=== PATIENT | male | born 1955 | race Caucasian/White ===

== ENCOUNTER 2018-01-01 18:26 | Inpatient (IN) | payer BC, OTHER ==
[~2018-01-01] VITALS: Ht 177.8 cm; Wt 108.9 kg
[2018-01-01] MEDS ORDERED: IBUPROFEN 400 MG TABLET PO PRN (19:00)
[2018-01-01] MEDS ORDERED: LOPERAMIDE HCL 2 MG CAPSULE PO PRN ×2 (19:00)
[2018-01-01] MEDS ORDERED: MAG HYDROX/AL HYDROX/SIMETH 30 ML LIQUID UDC PO PRN (19:00)
[2018-01-01] MEDS ORDERED: ACETAMINOPHEN 325 MG TABLET PO PRN (19:00)
[2018-01-01] MEDS ORDERED: ONDANSETRON ODT 4 MG TAB.RAPDIS SL PRN (19:00)
[2018-01-01] MEDS ORDERED: DICYCLOMINE HCL 20 MG TABLET PO PRN (19:00)
[2018-01-01] MEDS ORDERED: LORAZEPAM 1 MG TABLET PO PRN (19:00)
[2018-01-01] MEDS ORDERED: ONDANSETRON 4 MG/2 ML VIAL IM PRN (19:00)
[2018-01-01] MEDS ORDERED: LORAZEPAM 2 MG/1 ML VIAL IM PRN (19:00)
[2018-01-01] MEDS ORDERED: MIRALAX 17 GM POWD.PACK PO PRN (19:00)
[2018-01-01 19:52] LABS: BASOPHILS # (AUTO) 0.1 K/uL (0.0-8.0); EOSINOPHILS % (AUTO) 0.8 % (0.0-7.0); HEMATOCRIT 46.5 % (36.7-47.1); HEMOGLOBIN 16.1 g/dL (12.5-16.3); LYMPHOCYTES # (AUTO) 2.3 K/uL (20.0-40.0); LYMPHOCYTES % (AUTO) 34.7 % (20.5-51.5); MEAN CORPUSCULAR HEMOGLOBIN 32.4 uug (23.8-33.4); MEAN CORPUSCULAR HGB CONC 35 g/dL (32.5-36.3); MEAN CORPUSCULAR VOLUME 93.8 fL (73.0-96.2); MONOCYTES # (AUTO) 0.5 K/uL (2.0-10.0); NEUTROPHILS # (AUTO) 3.6 K/uL (1.8-8.9); NEUTROPHILS % (AUTO) 55.5 % (38.5-71.5); PLATELET COUNT (AUTO) 211 K/uL (152-348); RED BLOOD CELL COUNT(AUTO) 4.96 MIL/uL (4.06-5.63); WHITE BLOOD COUNT (AUTO) 6.5 K/uL (3.6-10.2)
[2018-01-01 20:00] VITALS: BP 161/98
[2018-01-01 20:03] LABS: BILIRUBIN,TOTAL 0.5 mg/dL (0.2-1.0); CREATININE 1.2 mg/dL (0.6-1.3); MAGNESIUM 1.9 mg/dL (1.8-2.4); POTASSIUM 3.7 mmol/L (3.5-5.1); TOTAL PROTEIN, SERUM 8.4 g/dL (6.4-8.2)
[2018-01-01] MEDS ORDERED: METO-357 PO (20:04)
[2018-01-01] MEDS ORDERED: HYDR12.55 PO (20:04)
[2018-01-01] MEDS ORDERED: VALA100026 PO (20:04)
[2018-01-01] MEDS ORDERED: [UNRECOGNIZED DRUG - REMARK] (20:04)
[2018-01-01 20:21] LABS: THYROID STIMULATING HORMONE 2.295 mIU/mL (0.358-3.740)
[2018-01-01] MEDS ORDERED: LORAZEPAM 1 MG TABLET PO SCH (21:00)
[2018-01-01] MEDS ORDERED: THIAMINE HCL 200 MG/2 ML VIAL IM ONE (21:00)
[2018-01-01 21:51] LABS: *AMPHETAMINE, URINE NEGATIVE (NEGATIVE); *BARBITURATE, URINE NEGATIVE (NEGATIVE); *CANNABINOID, URINE NEGATIVE (NEGATIVE); *COCCAINE, URINE NEGATIVE (NEGATIVE); *OPIATE, URINE NEGATIVE (NEGATIVE); *PHENCYCLIDINE SCREEN,URINE NEGATIVE (NEGATIVE)
--- NOTE | 2018-01-01 22:30 | NUR ---
ADMISSION NOTE Patient is a 62-year-old male admitted on 01/01/18 for ETOH (vodka) withdrawal, arrived on the unit at 1923. Patient was seen at intake and vital signs take by Yadira. Upon arrival to unit, skin and body check completed. Patient has a small skin lesion on his left forearm as a result of cancer removal 3 weeks ago. Picture and measurements take, place in patient chart. Otherwise, patients skin is warm and diaphoretic. Patient is 510 and weighs 240 lbs. Patient appears anxious and flushed, alcohol on his breath, tremors noted, nausea reported. Patient lung sounds are clear to auscultation bilaterally, some SOB on exertion noted. Patient reports he has been diagnosed with sleep apnea but did not bring his CPAP with him. Nurse instructed patient to keep HOB elevated. Patient denies SI/HI, and denies A/V hallucinations at this time. Patients gait is unsteady due to numbness and weakness of lower extremities. Patients abd is soft and non-tender, bowel sounds hypoactive x4 quadrants upon auscultation. Patient denies history of seizure. He states he is on a regular diet with NKFA, only allergy is to codeine. Patient requests FULL code status, and is currently not a candidate for MRSA swab. Patient states his longest period of sobriety was for 3 years from [id number]. Patients CIWA is 13 upon admission. Patient denies any family history of substance/drug abuse within his immediate family. Patient quit smoking in 2010. Substance abuse history: 1.ETOH (vodka) up to 0.5 gallon daily, for the past 3-4 weeks. Patient had his last drink around 8am this morning of about half a pint. Patient has been drinking alcohol since he was 19-year-old. Patient has been given a tour of the unit and oriented to his room. Patient has been given rules and protocols of the unit as well as handout information. Patient verbalizes understanding to instructions. Safety measures in place. Patient is on fall and seizure precautions. Bed is locked in low position, side rails up x2, call light within reach. Will continue to monitor.
[2018-01-01] MEDS: diphenhydrAMINE 50 MG CAPSULE PO PRN (22:55)
--- NOTE | 2018-01-01 22:55 | NUR ---
PRN BENADRYL Patient requests sleep aid; PRN Benadryl given PO. Safety measures in place, call light within reach. Will reassess for effectiveness.
--- NOTE | 2018-01-01 23:55 | NUR ---
PRN BENADRYL REASSESSMENT Patient is in bed with eyes closed, respirations even and unlabored, 18/min. PRN effective, in conjunction with Ativan 2mg one time dose. Safety measures in place, call light within reach. Will continue to monitor.
[2018-01-02] VITALS: BP 197/114
--- NOTE | 2018-01-02 | NUR ---
CIWA DEFERRED CIWA deferred due to patient asleep; to be assessed while patient is awake, per protocol. Safety measures in place, call light within reach. Will continue to monitor.
[2018-01-02] MEDS: LORAZEPAM 1 MG TABLET PO PRN ×4 (00:48→23:11)
[2018-01-02 04:00] VITALS: BP 171/116
[2018-01-02] MEDS: hydrALAZINE HCL 50 MG TABLET PO PRN ×2 (04:23→10:42)
--- NOTE | 2018-01-02 04:23 | NUR ---
PRN ATIVAN AND HYDRALAZINE Patient has a current CIWA of 9, current BP 171/116, HR 130. PRN Ativan 1mg given PO, PRN hydralazine given PO. Safety measures in place, call light within reach. Will reassess for effectiveness.
--- NOTE | 2018-01-02 05:23 | NUR ---
PRN ATIVAN AND HYDRALAZINE REASSESSMENT Patient has a current CIWA of 14, current BP of 180/120, HR 125. PRNs given at 0423 were not effective. Charge nurse notified. Safety measures in place, call light within reach. Will continue to monitor and administer meds as appropriate.
--- NOTE | 2018-01-02 05:58 | NUR ---
PRN ATIVAN PRN Ativan 2mg PO given for CIWA of 14. Patient is tremulous, agitated and anxious. Charge nurse notified. Safety measures in place, call light within reach, will reassess for effectiveness.
--- NOTE | 2018-01-02 06:58 | NUR ---
PRN ATIVAN REASSESSMENT Patient is in bed with eyes closed, CIWA deferred due to patient sleeping. Safety measures in place, call light within reach. Will continue to monitor and endorse to day shift.
--- NOTE | 2018-01-02 07:20 | NUR ---
END OF SHIFT Patient is a 29-year-old female admitted on 12/30/17 for Xanax and heroin withdrawal. Patient is on day 3 of 4-day Valium and 5-day Subutex taper. Last COWS was 9, CIWA 8. Patient received PRN Seroquel, Motrin, and MOM. Patient slept for 7 hours, total intake 1,355 mL, void x3 stool x0. Safety measures in place, bed locked in low position, side rails up x2, call light within reach. Will endorse to day shift. Addendum: 01/02/18 at 0805 by WILL DAVENPORT LVN -CORRECTION - The following is the correct end of shift note: END OF SHIFT Patient is a 62-year-old male admitted on 01/01/18 for ETOH (vodka) withdrawal. Patient received PRN Ativan 1mg, Ativan 2mg, Benadryl and hydralazine. Patient slept for 7 hours, total intake 500 mL, void x2, stool x0. Unsteady gait with numbness/weakness of both lower extremities. Patient educated to call for assistance if desiring to ambulate to restroom. Patient verbalized understanding. Safety measures in place, bed locked in low position, side rails up x2, call light within reach. Will endorse to day shift.
--- NOTE | 2018-01-02 08:10 | NUR ---
BEGINNING OF SHIFT Patient endorsement report received from production shift supervisor nurse, all pertinent information discussed. Patient is a 62 year old male with admitting Dx: etoh withdrawal. Patient continues under very close observation, currently with no ongoing taper, but has PRN medications as needed for s/sx of withdrawal. will monitor closely. Per production shift supervisor patient with last ciwa score of: 14. Received PRN: Ativan x3, Benadryl, Zofran and Hydralazine, per production shift supervisor medications were effective, Slept for 7 hours, Fall and seizure precautions observed at all times. Patient received awake, alert and oriented x4, educated regarding plan of care for the day, will continue to monitor closely. safety measures in place.
[2018-01-02 09:00] VITALS: BP 186/109
[2018-01-02] MEDS ORDERED: PNEUMOCOCCAL 23-VAL P-SAC VAC 0.5 ML VIAL IM ONE (09:00)
[2018-01-02] MEDS ORDERED: INFLUENZA VACCINE 2017-2018 0.5 ML DISP.SYRIN IM ONE (09:00)
[2018-01-02] MEDS ORDERED: TUBERCULIN,PURIF.PROT.DERIV. 5 TU/0.1 ML TEST ID ONE (09:00)
[2018-01-02] MEDS ORDERED: PATIENT MAY USE OWN MED- MD OK PO SCH ×2 (09:00)
[2018-01-02] MEDS: FOLIC ACID 1 MG TABLET PO SCH (09:17)
[2018-01-02] MEDS: THIAMINE HCL 100 MG TABLET PO SCH (09:17)
[2018-01-02] MEDS: MULTIVITAMINS,THERAPEUTIC TABLET PO SCH (09:17)
[2018-01-02] MEDS: LORAZEPAM 1 MG TABLET PO SCH ×4 (09:17→21:07)
[2018-01-02] MEDS ORDERED: METOPROLOL SUCCINATE XL 50 MG TAB.SR.24H PO SCH (09:45)
[2018-01-02] MEDS ORDERED: HYDROCHLOROTHIAZIDE 12.5 MG CAPSULE PO SCH (09:45)
--- NOTE | 2018-01-02 09:58 | NUR ---
REFUSED PPD Patient refused PPD, Per patient had done less than a year ago and it was negative, md aware.
--- NOTE | 2018-01-02 09:58 | NUR ---
PNA/FLU VACCINE Patient consented for PNA vaccine and influenza vaccine, administered as ordered, procedure explained prior to administration. well tolerated.
--- NOTE | 2018-01-02 10:42 | NUR ---
PRN HYDRALAZINE Patient BP: 196/109 HR: 112, Administered Hydralazine as ordered, patient denies any chest pain or dizziness, will continue to monitor.
--- NOTE | 2018-01-02 11:42 | NUR ---
HYDRALAZINE REASSESSMENT Medication ineffective. patients bp: 201/114 hr: 114, notified Dr. Jamil. Per MD will enter orders for labetalol. patient is in bed watching TV denies any chest pain/dizziness/SOB. will continue to monitor.
[2018-01-02] MEDS ORDERED: LABETALOL HCL 100 MG TABLET PO ONE (11:45)
--- NOTE | 2018-01-02 12:02 | NUR ---
PRN ATIVAN/ONE TIME LABETALOL Patient presenting with: nausea, tremors, sweats, anxiety, restlessness, fidgety, mild on/off numbness to feet, elevated heart rate, elevated blood pressure with: ciwa score of: 18, Administered Ativan 2mg PO for s/sx of withdrawal and One time Labetalol for elevated blood pressure, will reassess, will continue to monitor closely.
[2018-01-02 12:20] VITALS: BP 201/114
--- NOTE | 2018-01-02 13:02 | NUR ---
LABETOLOL REASSESSMENT BP: 193/119, HR: 104, Md notified.
[2018-01-02] MEDS ORDERED: hydrALAZINE HCL 50 MG TABLET PO SCH (13:40)
[2018-01-02] MEDS ORDERED: LOSARTAN POTASSIUM 50 MG TABLET PO SCH (13:40)
--- NOTE | 2018-01-02 13:53 | NUR ---
ONE TIME LOSARTAN/HYDRALAZINE Patient was administered a one time dose of losartan as ordered, and hydralazine as ordered for elevated blood pressure, 193/119, hr: 104. will reassess BP.
[2018-01-02 16:41] VITALS: BP 136/88
--- NOTE | 2018-01-02 19:10 | NUR ---
END OF SHIFT Patient alert and oriented x4, appears with anxious affect, patient with worried and anxious facial expression. Patient easily overwhelmed. Patient noted guarded and worried. Patient continues with ongoing 5 day Ativan taper as ordered, s/sx of withdrawal, with admitting Dx: etoh withdrawal, patient began day 1 of taper. Patient presented with: tremors, sweats, anxiety and agitation, wringing hands, and tense muscles, nausea, fidgety, mild on/off numbness to feet. Patient received PRN: Ativan and hydralazine, and received one time doses of: hydralazine, losartan, and labetalol, medications were effective towards end of shift, decrease in BP. Patient with elevated blood pressure during shift, medications were effective, last BP: 136/88 hr: 95.continues under close observation. Initial ciwa score of: 18, last ciwa score of: 17, MD is aware. During shift Administered PNA/FLU vaccine as ordered, procedure well tolerated. Patient was encouraged adequate PO fluid intake as tolerated, patient encouraged to develop coping skills and utilization of non pharmacological interventions. Patient was encouraged to participate in therapy session.Encouraged diversional activities to alleviate anxiety. Denies any SI/HI. Safety measures are in place. Call light kept with in reach, continues under close observation. Patient endorsed to night court magistrate nurse, all pertinent information was discussed. Will continue to monitor.
--- NOTE | 2018-01-02 19:15 | NUR ---
Start of shift note Received report from day shift nurse. Pt is a 62 yo male, A+Ox4, presenting to [facility] for ETOH dependence. Pt has Allergies to Codeine, is on Full code status, and on Regular diet. Pt is on Fall and Seizure precautions. Pt has HX of Anxiety, HTN, Sleep Apnea, Diverticulitis, Umbilical hernia, and Left forearm skin cancer biopsy/removal. Pt is on 5 day Ativan taper, tolerated well. No s/s of distress noted at this time. Respirations even and unlabored. Will continue to monitor.
[2018-01-02 20:11] VITALS: BP 152/96
[2018-01-02] MEDS: diphenhydrAMINE 50 MG CAPSULE PO PRN (23:11)
--- NOTE | 2018-01-02 23:11 | NUR ---
PRN Benadryl and Ativan 2mg Pt c/o inability to sleep and noted with CIWA: 13. PRN Benadryl and PRN Ativan 2mg given and tolerated well. Will reassess within 1 HR. Will continue to monitor.
--- NOTE | 2018-01-03 00:07 | NUR ---
PRN Benadryl and Ativan 2mg Reassessment Medications effective. Pt is resting well in bed with CIWA: 10. No s/s of ASE/distress noted at this time. Respirations even and unlabored. Will continue to monitor.
[2018-01-03 00:27] VITALS: BP 144/90
[2018-01-03] MEDS: LORAZEPAM 1 MG TABLET PO PRN (03:38)
--- NOTE | 2018-01-03 03:38 | NUR ---
PRN Ativan 2mg Pt noted with CIWA: 14. PRN Ativan 2mg given and tolerated well. Will reassess within 1 HR. Will continue to monitor.
[2018-01-03 04:11] VITALS: BP 142/88
--- NOTE | 2018-01-03 04:15 | NUR ---
PRN Ativan 2mg Reassessment Medication effective. Pt noted with CIWA: 10 . No s/s of ASE/distress noted at this time. Respirations even and unlabored. Will continue to monitor.
[2018-01-03 06:45] LABS: BASOPHILS # (AUTO) 0.1 K/uL (0.0-8.0); BASOPHILS % (AUTO) 1.1 % (0.0-2.0); EOSINOPHILS # (AUTO) 0.2 K/uL (0.0-0.7); EOSINOPHILS % (AUTO) 3.5 % (0.0-7.0); HEMATOCRIT 41.6 % (36.7-47.1); HEMOGLOBIN 14.3 g/dL (12.5-16.3); LYMPHOCYTES # (AUTO) 1.3 K/uL (20.0-40.0); LYMPHOCYTES % (AUTO) 20.6 % (20.5-51.5); MEAN CORPUSCULAR HEMOGLOBIN 32.6 uug (23.8-33.4); MEAN CORPUSCULAR HGB CONC 34 g/dL (32.5-36.3); MONOCYTES # (AUTO) 0.6 K/uL (2.0-10.0); MONOCYTES % (AUTO) 9.9 % (0.0-11.0); NEUTROPHILS # (AUTO) 4.1 K/uL (1.8-8.9); NEUTROPHILS % (AUTO) 64.9 % (38.5-71.5); PLATELET COUNT (AUTO) 153 K/uL (152-348); RED BLOOD CELL COUNT(AUTO) 4.38 MIL/uL (4.06-5.63); WHITE BLOOD COUNT (AUTO) 6.3 K/uL (3.6-10.2)
[2018-01-03 06:51] LABS: BILIRUBIN,DIRECT 0.2 mg/dL (0.0-0.2); CREATININE 1.2 mg/dL (0.6-1.3); MAGNESIUM 1.8 mg/dL (1.8-2.4); PHOSPHOROUS 3.5 mg/dL (2.5-4.9); POTASSIUM 3.2 mmol/L (3.5-5.1); TOTAL PROTEIN, SERUM 7.1 g/dL (6.4-8.2)
--- NOTE | 2018-01-03 07:00 | NUR ---
End of shift note Pt is a 62 yo male, A+Ox4, presenting to [facility] for ETOH dependence. Pt has Allergies to Codeine, is on Full code status, and on Regular diet. Pt is on Fall and Seizure precautions. Pt has HX of Anxiety, HTN, Sleep Apnea, Diverticulitis, Umbilical hernia, and Left forearm skin cancer biopsy/removal. Pt is on 5 day Ativan taper, tolerated well. Pt was given PRN Benadryl and Ativan 2mg @2311 and PRN Ativan 2mg @0338. Pt slept for a total of 7 HRS. Last CIWA: 10 @0400. No s/s of distress noted at this time. Respirations even and unlabored. Will endorse to day shift nurse.
--- NOTE | 2018-01-03 07:30 | NUR ---
Start of shift note; Received report from night nurse. Patient is a 62 year old male admitted on 01/01/18 for ETOH withdrawals. Patient appears older than stated age, fearful , with poor eye contact to staff, anxious, irritable,withdrawn, tremors noted. Educated patient regarding the importance of compliance to treatment and medication regime, verbalized understanding. Patient encouraged to participate in group in group activities and to verbalize feelings. Instructed patient to call staff for assistance in case he is in need of help, verbalized understanding. All safety measures secured. Will continue to monitor patient.
[2018-01-03 08:00] VITALS: BP 150/100
[2018-01-03] MEDS: LOSARTAN POTASSIUM 50 MG TABLET PO SCH (08:45)
[2018-01-03] MEDS: MULTIVITAMINS,THERAPEUTIC TABLET PO SCH (08:45)
[2018-01-03] MEDS: HYDROCHLOROTHIAZIDE 25 MG TABLET PO SCH (08:45)
[2018-01-03] MEDS: LORAZEPAM 1 MG TABLET PO SCH ×3 (08:45→22:16)
[2018-01-03] MEDS: FOLIC ACID 1 MG TABLET PO SCH (08:45)
[2018-01-03] MEDS: THIAMINE HCL 100 MG TABLET PO SCH (08:45)
[2018-01-03] MEDS: METOPROLOL SUCCINATE XL 50 MG TAB.SR.24H PO SCH (08:46)
[2018-01-03] MEDS ORDERED: METOPROLOL SUCCINATE XL 100 MG TAB.SR.24H PO SCH (09:00)
--- NOTE | 2018-01-03 10:46 | NUR ---
MD communication; MD on unit. Patient's potassium level reported to MD, awaiting for supplemental order. Patient noted to have unsteady gait, MD ordered 1:1 sitter for direct supervision for safety. Reported to MD patient's need of physical therapy evaluation, awaiting for further orders. Sitter currently at bedside.
[2018-01-03 12:00] VITALS: BP 151/102
[2018-01-03] MEDS ORDERED: POTASSIUM CHLORIDE 20 MEQ TAB.PRT.SR PO ONE (12:30)
--- NOTE | 2018-01-03 12:30 | NUR ---
Potassium supplement; Patient's Potassium is low, MD notified. MD ordered supplemental K-dur 40 meq PO. Medication given as ordered.
[2018-01-03] MEDS: hydrALAZINE HCL 50 MG TABLET PO PRN (12:40)
--- NOTE | 2018-01-03 12:40 | NUR ---
PRN medication; Patient's BP noted to be elevated, BP of 151/102. PRN Hydralazine 75mg PO given as per MD order for elevated BP. Will continue to monitor patient. Sitter at bedside for safety.
--- NOTE | 2018-01-03 12:43 | NUR ---
THerapist prompted client to come to group today and not isolate in bedroom. Client agreed to attend group.
[2018-01-03 13:06] LABS: HEPATITIS B SURFACE AG Negative (Negative)
--- NOTE | 2018-01-03 13:40 | NUR ---
Re-assessment; Rechecked patient BP, current BP noted to be 132/88, PRN Hydralazine noted to be effective. Will continue to monitor patient.
[2018-01-03 16:00] VITALS: BP 120/63
--- NOTE | 2018-01-03 18:57 | NUR ---
End of shift note; Patient is AOX4. Patient is withdrawn and isolative. Patient remained compliant with treatment plan and medication regime. Medications noted to be effective in reducing withdrawal symptoms. Patient participated in group therapies and activities due to unsteady gait. Patient was placed on 1:1 sitter supervision for safety d/t patient is high risk for fall. Patient appears agitated, tremors noted, complaining of chills and sweats. Patient's potassium was supplemented. All safety measures secured. Met all needs. Endorsed to night nurse.
--- NOTE | 2018-01-03 19:30 | NUR ---
START OF SHIFT NOTE : Pt. is 62 year old male admitted for ETOH/Vodka medically supervised withdrawal. Patient cont. on Ativan taper, started on 01/02/2018, tolerating well. LAST CIWA=7 at 16:00, PRN given during day shift : HYDRALAZINE . Patient was placed on 1:1 sitter supervision for safety d/t patient is high risk for fall. Patient appears restless, tremors noted, poor eye contact to staff, anxious. He complains of insomnia, increased level of anxiety, unsteady gait, tremors . Educated patient to participate in group in group activities, pt. verbalized understanding. All safety measures in place per hospital policy, call light within reach, will continue to monitor.
[2018-01-03 20:00] VITALS: BP 135/80
--- NOTE | 2018-01-03 21:00 | NUR ---
PRN BENADRYL PRN BENADRYL PO GIVEN FOR Sleeplessness. Safety measures in place : bed on lowest position with side rails x2 up for safety, call light within reach. Will continue to monitor closely and offer help.
--- NOTE | 2018-01-03 22:00 | NUR ---
RE-ASSESSMENT HOSSEIN Pt. is sleeping, RR=16, unlabored and even . Safety measures in place : bed on lowest position with side rails x2 up for safety, call light within reach. Will continue to monitor closely and offer help.
[2018-01-03] MEDS: diphenhydrAMINE 50 MG CAPSULE PO PRN (22:16)
[2018-01-04 04:00] VITALS: BP 155/85
--- NOTE | 2018-01-04 05:00 | NUR ---
PRN Hydralazine Patient's BP noted to be elevated, BP of 151/102. PRN Hydralazine 75mg PO given as per MD order for elevated BP. Will continue to monitor patient. Sitter at bedside for safety.
--- NOTE | 2018-01-04 06:00 | NUR ---
Re-assessment; Rechecked patient BP, current BP noted to be 140/80, PRN Hydralazine noted to be effective. Will continue to monitor patient.
--- NOTE | 2018-01-04 06:20 | NUR ---
END OF SHIFT NOTE : Pt. is 62 year old male admitted for ETOH/Vodka medically supervised withdrawal. Patient cont. on Ativan taper, started on 01/02/2018, tolerating well. Pt. is partially compliant with a TX plan, PRN given during shift coordinator : BENADRYL, HYDRALAZINE. Pt. is still 1:1 for safety ( unsteady gait ). Pt. remains anxious when awake, has restless sleep. CIWA taken when pt. was awake, last CIWA= 6 at 04:00. Psbwki=[id number] , voided x 2 , slept=8 hours. Safety measures in place : bed on lowest position with side rails x2 up for safety, call light within reach. Will continue to monitor closely and offer help.
[2018-01-04] MEDS: hydrALAZINE HCL 50 MG TABLET PO PRN (06:52)
--- NOTE | 2018-01-04 07:46 | NUR ---
BEGINNING OF SHIFT Patient endorsement report received from power and recovery shift engineer nurse, all pertinent information discussed. Patient is a 62 year old male with admitting Dx: etoh withdrawal. Patient continues under very close observation, patient continues on 5 day ativan taper as ordered, scheduled to begin day 3 of taper, patient is currently with 1: 1 sitter for safety precautions. BP monitored closely due to episodes of elevated blood pressure. Per power and recovery shift engineer patient with last ciwa score of: 6. Received PRN: Benadryl and Hydralazine, per power and recovery shift engineer medications were effective, Slept for 8 hours, Fall and seizure precautions observed at all times. Patient received awake, alert and oriented x4, educated regarding plan of care for the day, will continue to monitor closely. safety measures in place.
[2018-01-04 08:53] VITALS: BP 127/84
[2018-01-04] MEDS: FOLIC ACID 1 MG TABLET PO SCH (08:54)
[2018-01-04] MEDS: LOSARTAN POTASSIUM 50 MG TABLET PO SCH (08:54)
[2018-01-04] MEDS: MULTIVITAMINS,THERAPEUTIC TABLET PO SCH (08:55)
[2018-01-04] MEDS: THIAMINE HCL 100 MG TABLET PO SCH (08:55)
[2018-01-04] MEDS: METOPROLOL SUCCINATE XL 50 MG TAB.SR.24H PO SCH (08:55)
[2018-01-04] MEDS: HYDROCHLOROTHIAZIDE 25 MG TABLET PO SCH (08:55)
[2018-01-04] MEDS ORDERED: LORAZEPAM 1 MG TABLET PO SCH ×2 (09:00→21:00)
--- NOTE | 2018-01-04 10:00 | NUR ---
Client plans to attend the afternoon group today.
[2018-01-04 12:00] VITALS: BP 122/86
[2018-01-04] MEDS: LORAZEPAM 1 MG TABLET PO SCH ×2 (13:04→16:53)
[2018-01-04 16:50] VITALS: BP 130/82
--- NOTE | 2018-01-04 18:46 | NUR ---
END OF SHIFT Patient alert and oriented x4, appears with anxious affect, patient with worried and anxious facial expression. Patient easily overwhelmed. Patient noted guarded and worried. Patient continues with ongoing 5 day Ativan taper as ordered, for s/sx of withdrawal, with admitting Dx: etoh withdrawal, patient continues on day 3 of taper. Patient presented with: tremors, sweats, anxiety, and agitation Patient received no PRNs during shift. continues under close observation, BP WNL, during shift. Initial ciwa score of: 10, last ciwa score of: 8, detox medication effective at reducing withdrawal symptoms. Continues with 1: 1 sitter at bedside for safety precautions, patient still with unsteady gait, but noted with improved gait during shift. Patient was also seen by PT during shift. Patient was encouraged adequate PO fluid intake as tolerated, patient encouraged to develop coping skills and utilization of non pharmacological interventions. Patient was encouraged to participate in therapy session.Encouraged diversional activities to alleviate anxiety. Denies any SI/HI. Safety measures are in place. Call light kept with in reach, continues under close observation. Patient endorsed to night supervisor nurse, all pertinent information was discussed. Will continue to monitor.
--- NOTE | 2018-01-04 19:12 | NUR ---
Start of shift note Received report from day shift nurse. Pt is a 62 yo male, A+Ox4, presenting to [facility] for ETOH withdrawal. Pt is on 1:1 sitter for unsteady gait. Pt is in bed watching basketball. Pt noted with tremors and anxiety /. Pt expresses desire to sleep once basketball game is over. Pt has HX of Anxiety, HTN, and sleep apnea which will be monitored throughout shift. Pt is on a 5 day Ativan taper, tolerated well. Respirations even and unlabored. Will continue to monitor.
[2018-01-04 20:16] VITALS: BP 114/66
[2018-01-04] MEDS: diphenhydrAMINE 50 MG CAPSULE PO PRN (20:28)
--- NOTE | 2018-01-04 20:28 | NUR ---
PRN Benadryl Pt c/o inability to sleep and requested for PRN Benadryl. Medication given and tolerated well. Will reassess within 1 HR. Will continue to monitor.
--- NOTE | 2018-01-04 21:20 | NUR ---
PRN Benadryl Reassessment Medication effective. Pt is resting well in bed. No s/s of ASE/distress noted at this time. Respirations even and unlabored. Will continue to monitor.
--- NOTE | 2018-01-05 00:26 | NUR ---
KEISHA BANKS AND BENADL ADMINISTRATION PATIENT ANXIOUS, RESTLESS, STILL UNABLE TO SLEEP. WILL MONITOR FOR EFFECTIVENESS Addendum: 01/06/18 at 0159 by LUCILLE KRUEGER LVN ERROR: TIME CHARTING
[2018-01-05 00:34] VITALS: BP 124/71
[2018-01-05 04:19] VITALS: BP 128/74
--- NOTE | 2018-01-05 06:49 | NUR ---
End of shift note Pt continues on 1:1 sitter for unsteady gait. Pt was noted with tremors and Anxiety throughout shift. Pt was given PRN Benadryl @2027 for sleep aid which was effective. Pt was given scheduled dose of Ativan @2100 for anxiety which helped reduced patients CIWA score from 10 @2000 to 8 @0400. Pt woke up @0330 and asked for additional sleep medications however I informed the patient that he did not have any more sleep aids available for the night and encouraged him to try his best to sleep. Pt was compliant. Pt slept for a total of 6 HRS. Respirations even and unlabored. Will endorse to day shift nurse.
--- NOTE | 2018-01-05 07:40 | NUR ---
BEGINNING OF SHIFT Patient endorsement report received from public health dentist nurse, all pertinent information discussed. Patient is a 62 year old male with admitting Dx: etoh withdrawal. Patient continues under very close observation, patient continues on 5 day ativan taper as ordered, scheduled to begin day 4 of taper, patient is currently with 1: 1 sitter for safety precautions. BP monitored closely due to episodes of elevated blood pressure. Per public health dentist patient with last ciwa score of: 8. Received PRN: Benadryl,, Slept for 6 hours, Fall and seizure precautions observed at all times. Patient received awake, alert and oriented x4, educated regarding plan of care for the day, will continue to monitor closely. safety measures in place.
[2018-01-05] MEDS: HYDROCHLOROTHIAZIDE 25 MG TABLET PO SCH (08:59)
[2018-01-05] MEDS: FOLIC ACID 1 MG TABLET PO SCH (08:59)
[2018-01-05] MEDS: LOSARTAN POTASSIUM 50 MG TABLET PO SCH (08:59)
[2018-01-05] MEDS: THIAMINE HCL 100 MG TABLET PO SCH (09:00)
[2018-01-05] MEDS: MULTIVITAMINS,THERAPEUTIC TABLET PO SCH (09:00)
[2018-01-05] MEDS: METOPROLOL SUCCINATE XL 50 MG TAB.SR.24H PO SCH (09:00)
[2018-01-05] MEDS: LORAZEPAM 1 MG TABLET PO SCH ×2 (09:00→14:07)
[2018-01-05 09:03] VITALS: BP 143/83
[2018-01-05 13:43] VITALS: BP 128/79
[2018-01-05 17:42] VITALS: BP 144/85
--- NOTE | 2018-01-05 18:57 | NUR ---
END OF SHIFT Patient alert and oriented x4, appears with anxious affect, patient with worried and anxious facial expression. Patient easily overwhelmed. Patient noted guarded and worried. Patient continues with ongoing 5 day Ativan taper as ordered, for s/sx of withdrawal, with admitting Dx: etoh withdrawal, patient continues on day 4 of taper. Patient presented with: tremors, sweats, anxiety, and agitation Patient received no PRNs during shift. continues under close observation, BP WNL, during shift. Initial ciwa score of: 10, last ciwa score of: 7, detox medication effective at reducing withdrawal symptoms. Continues with 1: 1 sitter at bedside for safety precautions, patient still with unsteady gait, but noted with improved gait during shift, patient seen by PT, patient ok to ambulate with walker for now. Patient was encouraged adequate PO fluid intake as tolerated, patient encouraged to develop coping skills and utilization of non pharmacological interventions. Patient was encouraged to participate in therapy session.Encouraged diversional activities to alleviate anxiety. Denies any SI/HI. Safety measures are in place. Call light kept with in reach, continues under close observation. Patient endorsed to rn shift mgr nurse, all pertinent information was discussed. Will continue to monitor.
[2018-01-05 20:00] VITALS: BP_SYST 130; BP_DIAS 88; BP_DIAS 89
--- NOTE | 2018-01-05 20:00 | NUR ---
START OF SHIFT NOTE RECEIVED REPORT FROM DAY SHIFT NURSE. PATIENT IS A 62 YEAR OLD MALE ADMITTED FOR ETOH WITHDRAWAL. PATIENT IS ON 4TH DAY OF HIS 5 DAY ATIVAN TAPER. PATIENT ON 1:1 FOR SAFETY DUE TO UNSTEADY GAIT, SEEN BY PT AND RECOMMENDED TO USE WALKER. PATIENT DID NOT REQUIRE PRN MEDICATION. LAST CIWA 7. PATIENT WAS HAVING TROUBLE SLEEPING. SEEN BY DR. HARRISON WITH NEW ORDER OF TRAZADONE. RECEIVE PATIENT IN THE ROOM WITH 1:1,WATCHING TV. PATIENT UNSHAVEN, PATIENT REPORTS ANXIETY, NOTED WITH BILATERAL HAND TREMOR AND STATES HE'S HAVING TROUBLE SLEEPING. SAFETY MEASURES IN PLACE. CALL LIGHT IN REACH. WILL CONTINUE TO MONITOR
[2018-01-05] MEDS ORDERED: LORAZEPAM 1 MG TABLET PO SCH (21:00)
[2018-01-05] MEDS: TRAZODONE 50 MG TABLET PO PRN (21:56)
--- NOTE | 2018-01-05 21:56 | NUR ---
PRN TRAZADONE ADMINISTRATION PATIENT REQUESTS FOR SLEEP AID. WILL MONITOR FOR EFFECTIVENESS
[2018-01-06] MEDS: diphenhydrAMINE 50 MG CAPSULE PO PRN ×2 (00:25→23:33)
[2018-01-06] MEDS: CLONIDINE HCL 0.1 MG TABLET PO PRN ×2 (00:26→20:39)
--- NOTE | 2018-01-06 00:26 | NUR ---
PRN TRAZADONE RE-ASSESSMENT TRAZADONE INEFFECTIVE. WILL ADMINISTER BENADRYL .
--- NOTE | 2018-01-06 00:26 | NUR ---
PRN CATAPRES AND BENADRYL ADMINISTRATION PATIENT ANXIOUS, RESTLESS, STILL UNABLE TO SLEEP. WILL MONITOR FOR EFFECTIVENESS
[2018-01-06 01:26] VITALS: BP 132/74
--- NOTE | 2018-01-06 01:26 | NUR ---
PRN CATAPRES/BENADRYL RE-ASSESSMENT PATIENT WITH EYES CLOSED. BP-132/74, CATAPRES EFFECTIVE. WILL CONTINUE TO MONITOR
--- NOTE | 2018-01-06 04:00 | NUR ---
CIWA DEFERRED PATIENT SLEEPING. CIWA DEFERRED. VS REFUSED. RESPIRATION EVEN AND UNLABORED. SAFETY MEASURES IN PLACE. CALL LIGHT IN REACH. WILL CONTINUE TO MONITOR
--- NOTE | 2018-01-06 07:13 | NUR ---
END OF SHIFT NOTE PATIENT SLEPT 6 HOURS. FLUID INTAKE 1,000 ML. VOIDED X 6. BM X 1. MONITORED PATIENT THROUGHOUT SHIFT. PATIENT CONTINUE ON 1:1 FOR SAFETY DUE TO UNSTEADY GAIT. PATIENT WAS HAVING TROUBLE SLEEPING. PATIENT WAS GIVEN PRN TRAZADONE , INEFFECTIVE. PRN BENADRYL GIVEN AND CATAPRES, BP- 149/94, EFFECTIVE, BP-132/74 AFTER ASSESSMENT. SAFETY MEASURES IN PLACE. CALL LIGHT IN REACH. WILL CONTINUE TO MONITOR. LAST CIWA 5.
--- NOTE | 2018-01-06 07:30 | NUR ---
START OF SHIFT Pt 62 y/o male admitted for medically supervised withdrawal. Pt received in room on bed with eyes closed resting, but easily arousable to name. Pt alert and oriented to name, place, and time. Perrla. Skin warm and moist to touch. Respirations even and unlabored. Bilateral hand tremors noted. Pt appears disheveled. Scattered clothes on the floor the in the room. Pt malodorous. It was reported that pt slept for 8 hours last night. Last ciwa=9 @ 0400. Pt is on a 5 day ativan taper and is on day 5. Bed on lowest position with side rails x2 up for safety. Call light within reach. Addendum: 01/06/18 at 1836 by DEVIN DUKES RN additional Pt with 1:1 sitter to monitor for safety.
[2018-01-06 08:00] VITALS: BP 131/88
[2018-01-06] MEDS: THIAMINE HCL 100 MG TABLET PO SCH (08:48)
[2018-01-06] MEDS: FOLIC ACID 1 MG TABLET PO SCH (08:48)
[2018-01-06] MEDS: HYDROCHLOROTHIAZIDE 25 MG TABLET PO SCH (08:48)
[2018-01-06] MEDS: LORAZEPAM 1 MG TABLET PO SCH ×2 (08:48→20:39)
[2018-01-06] MEDS: LOSARTAN POTASSIUM 50 MG TABLET PO SCH (08:48)
[2018-01-06] MEDS: MULTIVITAMINS,THERAPEUTIC TABLET PO SCH (08:48)
[2018-01-06] MEDS: METOPROLOL SUCCINATE XL 50 MG TAB.SR.24H PO SCH (08:49)
[2018-01-06 12:42] VITALS: BP 115/77
[2018-01-06 16:00] VITALS: BP 138/82
--- NOTE | 2018-01-06 18:35 | NUR ---
END OF SHIFT Pt 62 y/o male admitted for medically supervised withdrawal. Pt alert and oriented to name, place, and time. Perrla. Skin warm and moist to touch. Respirations even and unlabored. Bilateral hand tremors noted. Pt appears disheveled and unkempt. Scattered clothes on the floor the in the room. Pt malodorous. Pt with 1:1 sitter to monitor for safety. Pt was seen by MD today. Pt medication compliant and tolerated well. No ASE noted. COWS= 9 @0800, 9@1200, 9@1600. Pt is on a 5 day ativan taper and is on day 5. Bed on lowest position with side rails x2 up for safety. Call light within reach.
--- NOTE | 2018-01-06 19:30 | NUR ---
START OF SHIFT Pt is a 62 y/o male admitted on 01/01/18 for ETOH withdrawal. Pt is on a 5 day Ativan taper that started on 01/02/18, tolerating well, last dose of Ativan 1 mg tomorrow morning. Pt is on a 1:1 for unsteady gait/safety precaution. Pt has walker at bedside. Per day shift nurse, last CIWA 9 and no PRNs administered. Upon assessment pt is laying and presents with anxiety, restlessness, flushed skin, decreased appetite, increased BP, difficulty concentrating, flat affect and anhedonia. Medications due. Safety measures in place. Call light within reach. Will continue to monitor.
[2018-01-06 20:00] VITALS: BP 133/91
[2018-01-06] MEDS: TRAZODONE 50 MG TABLET PO PRN (20:39)
--- NOTE | 2018-01-06 20:40 | NUR ---
PRN CLONIDINE AND TRAZODONE ADMINISTRATION Pt requests sleep aid for difficulty falling and staying asleep. BP 133/91 HR 80, orders to give Clonidine. Safety measures in place. Call light within reach. Will continue to monitor.
--- NOTE | 2018-01-06 21:40 | NUR ---
PRN CLONIDINE AND TRAZODONE REASSESSMENT Pt remains awake but states "I feel more tired." BP 135/80 HR 82, Clonidine effective. Safety measures in place. Call light within reach. Will continue to monitor.
--- NOTE | 2018-01-06 23:33 | NUR ---
PRN BENADRYL ADMINISTRATION Pt states, "I slept the best last night which was when I was given Benadryl after not being able to sleep with just the Trazodone." Pt requests sleep aid, appears restless and talkative. Safety measures in place. Call light within reach. Will continue to monitor.
[2018-01-07] VITALS: BP 122/78
--- NOTE | 2018-01-07 00:33 | NUR ---
PRN BENADRYL REASSESSMENT Pt laying in bed with eyes closed, respirations even and unlabored. Safety measures in place. Call light within reach. Will continue to monitor.
[2018-01-07 04:00] VITALS: BP 124/75
--- NOTE | 2018-01-07 07:14 | NUR ---
END OF SHIFT Pt is a 62 y/o male admitted on 01/01/18 for ETOH withdrawal. Pt is on a 5 day Ativan taper that started on 01/02/18, tolerating well, last dose of Ativan 1 mg this morning. Pt has walker at bedside d/t unsteady gait. Pt presented with anxiety, restlessness, flushed skin, decreased appetite, increased BP, difficulty concentrating, flat affect, difficulty falling and staying asleep and anhedonia. Pt was unshaved and disheveled. Pt woke up numerous times throughout the night with difficulty falling back asleep. Scheduled medications and PRN Trazodone, Clonidine and Benadryl administered, effective in S/S of withdrawal AEB CIWA 6 lowered to 5 during shift. Pt slept 5 hours. Intake 1400 ml, void x 2, stool x 0. Safety measures in place. Call light within reach. Pts needs have been met. Endorsed to day shift nurse.
--- NOTE | 2018-01-07 07:30 | NUR ---
START OF SHIFT Pt 62 y/o male admitted for medically supervised withdrawal. Pt received in room on bed with eyes closed resting, but easily arousable to name. Pt alert and oriented to name, place, and time. Perrla. Skin warm and moist to touch. Respirations even and unlabored. Bilateral hand tremors noted. Pt appears disheveled and unkempt with hair uncombed. Scattered clothes on the floor the in the room and empty water bottles on bed side shelf. It was reported that pt slept for 8 hours last night. Last ciwa=5 @ 0400. Pt is on a modified ativan taper and is on day 6. Bed on lowest position with side rails x2 up for safety. Call light within reach.
[2018-01-07] MEDS: FOLIC ACID 1 MG TABLET PO SCH (08:21)
[2018-01-07] MEDS: LOSARTAN POTASSIUM 50 MG TABLET PO SCH (08:21)
[2018-01-07] MEDS: MULTIVITAMINS,THERAPEUTIC TABLET PO SCH (08:21)
[2018-01-07] MEDS: THIAMINE HCL 100 MG TABLET PO SCH (08:21)
[2018-01-07] MEDS: HYDROCHLOROTHIAZIDE 25 MG TABLET PO SCH (08:21)
[2018-01-07] MEDS: METOPROLOL SUCCINATE XL 50 MG TAB.SR.24H PO SCH (08:22)
[2018-01-07 08:26] VITALS: BP 129/81
[2018-01-07] MEDS ORDERED: LORAZEPAM 1 MG TABLET PO SCH (09:00)
[2018-01-07 12:00] VITALS: BP 142/88
--- NOTE | 2018-01-07 14:15 | NUR ---
CLient prompted CLient to come to group.
[2018-01-07 16:00] VITALS: BP 151/96
[2018-01-07] MEDS: hydrALAZINE HCL 50 MG TABLET PO PRN ×2 (17:04→23:43)
--- NOTE | 2018-01-07 17:05 | NUR ---
PRN Pt with cz=094/99. Hydralazine po prn per MD order given and tolerated well.
--- NOTE | 2018-01-07 18:06 | NUR ---
PRN EVAL pt with vc=035/80.
--- NOTE | 2018-01-07 18:34 | NUR ---
END OF SHIFT NOTE: A 62 year old male is admitted for Alcohol/Vodka withdrawal, completed 5 day Ativan Taper with tolerated well. Patient remains compliant with treatment, medications, and diet regime. CIWA=5 @1600. Patient presented with anxiety, agitation, c/o restlessness, fatigue, abdominal cramps, sweating, and tremors. The patient is unshaven and with uncombed hair. Education in safety and hygiene care provided to patient. Encouraged to independently perform hygiene care. Hydralazine PO administrated for HTN @ 1705 by day shift nurse was effective per day shift nurse report. Patient scheduled for discharge tomorrow, 01/08/2018 @0930. Calm environment and minimized noises was provided. All needs met. Safety measures in the place: Call light within reach, bed in the lowest position and locked, padded rails up x2. Patient endorsed by day shift nurse. Addendum: 01/07/18 at 2152 by GIL VENEGAS RN START OF SHIFT NOTE:
--- NOTE | 2018-01-07 18:34 | NUR ---
END OF SHIFT NOTE: A 62 year old male is admitted for Alcohol/Vodka withdrawal, completed 5 day Ativan Taper with tolerated well. Patient remains compliant with treatment, medications, and diet regime. CIWA=5 @1600. Patient presented with anxiety, agitation, c/o restlessness, fatigue, abdominal cramps, sweating, and tremors. The patient is unshaven and with uncombed hair. Education in safety and hygiene care provided to patient. Encouraged to independently perform hygiene care. Hydralazine PO administrated for HTN @ 1705 by day shift nurse was effective per day shift nurse report. Patient scheduled for discharge tomorrow, 01/08/2018 @0930. Calm environment and minimized noises was provided. All needs met. Safety measures in the place: Call light within reach, bed in the lowest position and locked, padded rails up x2. Patient endorsed by day shift nurse. Addendum: 01/07/18 at 2156 by GIL VENEGAS RN START OF SHIFT
--- NOTE | 2018-01-07 18:34 | NUR ---
END OF SHIFT Pt 62 y/o male admitted for medically supervised withdrawal. Pt alert and oriented to name, place, and time. Perrla. Skin warm and moist to touch. Respirations even and unlabored. Bilateral hand tremors noted. Pt appears disheveled and unkempt with hair uncombed. Pt malodorous. Pt observed isolative to room throughout the day. Pt was seen by MD today. Pt medication compliant and tolerated well. No ASE noted. COWS= 8 @0800, 6@1200, 5@1600. Pt is on a modified ativan taper and is on day 6. Bed on lowest position with side rails x2 up for safety. Call light within reach.
[2018-01-07 20:00] VITALS: BP 140/87
[2018-01-07] MEDS ORDERED: DIPH50CA37 PO (21:38)
[2018-01-07] MEDS ORDERED: METO50TA7 PO (21:38)
[2018-01-07] MEDS ORDERED: LOSA50TA3 PO (21:38)
[2018-01-07] MEDS ORDERED: HYDR25TA4 PO (21:38)
--- NOTE | 2018-01-07 21:49 | NUR ---
START OF SHIFT NOTE: A 62 year old male is admitted for Alcohol/Vodka withdrawal, completed 5 day Ativan Taper with tolerated well. Patient remains compliant with treatment, medications, and diet regime. CIWA=5 @1600. Patient presented with anxiety, agitation, c/o restlessness, fatigue, abdominal cramps, sweating, and tremors. The patient is unshaven and with uncombed hair. Education in safety and hygiene care provided to patient. Encouraged to independently perform hygiene care. Hydralazine PO administrated for HTN @ 1705 by day shift nurse was effective per day shift nurse report. Patient scheduled for discharge tomorrow, 01/08/2018 @0930. Calm environment and minimized noises was provided. All needs met. Safety measures in the place: Call light within reach, bed in the lowest position and locked, padded rails up x2. Patient endorsed by day shift nurse. Addendum: 01/07/18 at 2150 by GIL VENEGAS RN WRONG TIME.
[2018-01-07] MEDS: diphenhydrAMINE 50 MG CAPSULE PO PRN (23:32)
--- NOTE | 2018-01-07 23:32 | NUR ---
PRN BENADRYL 50 MG 1 CAP PO ADMINISTRATION Patient c/o insomnia. PRN Benadryl 50 mg 1 cap PO administrated with full glass of water as ordered. Patient tolerated well. All needs met. Safety measures on place. Call light within reach, bed in lowest position and locked, padded rails upX2. Will continue to monitor closely.
--- NOTE | 2018-01-07 23:43 | NUR ---
APRESOLINE (hydrALAZINE HCL 50 MG TABLET) 75 MG /1.5 TABLETS ADMINISTRATION FOR BP 158/100 ORDERED. PATIENT TOLERATED WELL. ALL NEEDS MET. ALL SAFETY MEASURES IN PLACE: CALL LIGHT WITHIN REACH, BED IN THE LOWEST POSITION, AND LOCKED, BED RAILS UP BILATERALLY. WILL CONTINUE TO MONITOR CLOSELY.
[2018-01-08] VITALS: BP 158/96
--- NOTE | 2018-01-08 00:32 | NUR ---
RE-ASSESSMENT Patient is sleeping. RR 14. Respirations even and unlabored. PRN Benadryl 50 mg 1 cap PO administrated for insomnia @2332 was effective. All needs met. Safety measures on place. Call light within reach, bed in lowest position and locked, padded rails up bilaterally rails up bilaterally. Will continue to monitor closely.
--- NOTE | 2018-01-08 00:43 | NUR ---
RE-ASSESSMENT BP 139/78, HR 84. PRN APRESOLINE (hydrALAZINE HCL 50 MG TABLET) 75 MG /1.5 TABLETS ADMINISTRATED FOR BP 158/100 @2343 WAS EFFECTIVE. ALL NEEDS MET. ALL SAFETY MEASURES IN PLACE: CALL LIGHT WITHIN REACH, BED IN THE LOWEST POSITION, AND LOCKED, BED RAILS UP BILATERALLY. WILL CONTINUE TO MONITOR CLOSELY.
[2018-01-08 04:00] VITALS: BP 147/90
--- NOTE | 2018-01-08 07:03 | NUR ---
END OF SHIFT NOTE Patient presented for ETOH(Vodka) withdrawal, completed 5 Day Ativan Taper with tolerated well. Patient is alert and oriented x4. Patient noted sad, worry, with poor eye contact. Patient encouraged to expresses his feelings. Patient c/o easily overwhelmed. Emotional support provided. Patient denied SI/HI. CIWA=7 @2000, COWS=8 @0000. Last CIWA=6 @0400. Patient presented with anxiety, agitation, depression, irritability, fatigue, nervousness, sweating, and insomnia. PRN Benadryl 50 mg 1 cap PO administrated for insomnia @2046, PRN Apresoline (HYDRALAZINE HC 50 mg tablet) 75 mg/1.5 tablets administrated for BP 158/100 @2343 were effective. Safe and calm environment with minimized noises was provided. Patient slept 5 hours, intake 1,592 ml, voided x4, stool x1. Patient is scheduled for discharging today, 01/08/2018 @0930. All needs met. Safety measures in the place by hospital policy: Call light within reach, bed in the lowest position and locked, padded rails up x2. Patient endorsed to day shift nurse.
--- NOTE | 2018-01-08 07:15 | NUR ---
START OF SHIFT PATIENT IS SITTING ON CHAIR IN ROOM AND STATES " I HAVE SHOWERED AND I'M ALL SET TO GO HOME ". EXPLAINED TO PATIENT I WILL BE BACK AT 8AM WITH HIS MEDICATIONS AND DC PAPERWORK. PRN MEDS GIVEN ON PM SHIFT : BENADRYL PO 50MG AND HYDRALAZINE PO. PATIENT SLEPT FOR 5 HOURS, WILL CONTINUE TO MONITOR AND FOLLOW DC ORDERS, LAST CIWA 6 @ 0400.
[2018-01-08 08:00] VITALS: BP 137/86
[2018-01-08] MEDS: HYDROCHLOROTHIAZIDE 25 MG TABLET PO SCH (08:26)
[2018-01-08 08:27] VITALS: BP 137/86
[2018-01-08] MEDS: FOLIC ACID 1 MG TABLET PO SCH (08:27)
[2018-01-08] MEDS: MULTIVITAMINS,THERAPEUTIC TABLET PO SCH (08:27)
[2018-01-08] MEDS: THIAMINE HCL 100 MG TABLET PO SCH (08:27)
[2018-01-08] MEDS: METOPROLOL SUCCINATE XL 50 MG TAB.SR.24H PO SCH (08:27)
[2018-01-08] MEDS: LOSARTAN POTASSIUM 50 MG TABLET PO SCH (08:27)
--- NOTE | 2018-01-08 08:56 | NUR ---
DISCHARGE NOTE: PATIENT WAS ADMITTED TO [facility] ON 01/01/18 TO DETOX FROM ALCOHOL. PATIENT WAS DISCHARGED TODAY 01/08/18 @ 0856. DISCHARGE INSTRUCTIONS GIVEN , SIGNED AND DATED, ALL PERSONAL BELONGINGS AND PRESCRIPTIONS GIVEN TO PATIENT. PATIENT DENIES ANY SI/HI. VITAL SIGNS STABLE BP 137/86, HR 80, TEMP 98.2, O2 98%, PATIENT DENIES HAVING ANY PAIN AT THIS TIME. PATIENT AMBULATED OFF THE UNIT AND WAS PICKED UP BY PRIVATE CAR .
== END 2018-01-08 08:56 | disposition other institution (70) | DRG 895 ==
LOC: SRC 18:26
PROVIDERS: ADMIT Internal Medicine; ATTEND Internal Medicine
PROC: HZ2ZZZZ Detoxification Services for Substance Abuse Treatment (ICD-10-PCS; principal; 2018-01-01)
PROC: HZ31ZZZ Individual Counseling for Substance Abuse Treatment, Behavioral (ICD-10-PCS; 2018-01-04)
PROC: HZ41ZZZ Group Counseling for Substance Abuse Treatment, Behavioral (ICD-10-PCS; 2018-01-06)
DX: F10.230 Alcohol dependence with withdrawal, uncomplicated (principal); E87.2 Acidosis; E87.8 Other disorders of electrolyte and fluid balance, not elsewhere classified; R45.851 Suicidal ideations; E87.1 Hypo-osmolality and hyponatremia; Z86.74 Personal history of sudden cardiac arrest; K70.10 Alcoholic hepatitis without ascites; E78.5 Hyperlipidemia, unspecified; E87.6 Hypokalemia; Y90.9 Presence of alcohol in blood, level not specified; E86.0 Dehydration; F17.211 Nicotine dependence, cigarettes, in remission; E66.9 Obesity, unspecified; Z68.34 Body mass index [BMI] 34.0-34.9, adult; F41.9 Anxiety disorder, unspecified; B00.1 Herpesviral vesicular dermatitis; Z81.1 Family history of alcohol abuse and dependence; G47.00 Insomnia, unspecified; I15.9 Secondary hypertension, unspecified; F32.9 Major depressive disorder, single episode, unspecified
CPT/HCPCS: 36415; 70030-TC; 80307; 83690; 83735; 84100; 84443; 85025; 86580; 86592; 86705; 86803; 87340; 87806; 90686; 90732; 93005; 97116; 97530; A4663; G0480; J3411; Q0162; Q0163